=== PATIENT | female | born 1955 | race Caucasian/White ===

== ENCOUNTER 2021-12-22 18:59 | Observation (INO) | payer MEDICARE, SELFPAY ==
[2021-12-22] VITALS (17 sets, daily range): BP systolic 107–171; BP diastolic 68–114; PULSE 111–141; RESP 16–27; TEMP 37.1; O2SAT 97–100
--- NOTE | ~2021-12-22 | XR_ITS ---
EXAMINATION: XR chest 1V portable Exam Date/Time: 12/22/2021 19:55 CDT CLINICAL HISTORY: asthma Comparison: None available. RESULT: Lines, tubes, and devices: None. Lungs and pleura: Clear. Mild senescent changes. Cardiomediastinal silhouette: Normal cardiomediastinal silhouette. Other: No acute osseous or upper abdominal finding. IMPRESSION: No acute cardiopulmonary process Reviewed, dictated and finalized at location K.
--- NOTE | 2021-12-22 19:15 | ECG_ITS ---
Measurements Intervals Morgan Rate: 137 P: 78 NE: 139 QRS: 55 QRSD: 90 T: 43 QT: 293 QTc: 443 Interpretive Statements SINUS TACHYCARDIA BASELINE ARTIFACT- I, III, AVR, AVL, AVF, V1-V6 ABNORMAL ECG Electronically Signed On 12-22-2021 19:19:44 CDT by Robel Dover D.O.
--- NOTE | 2021-12-22 19:29 | ED.GENADULT ---
HPI - General Adult General Chief complaint: Asthma Stated complaint: asthma sob Time Seen by Provider: 12/22/21 19:23 Source: patient, family, EMS and RN notes reviewed Mode of arrival: EMS Limitations: clinical condition History of Present Illness HPI narrative: 66-year-old female with history of asthma and seasonal allergies presented to the emergency department for evaluation of worsening shortness of breath that started approximately 2 days ago. Patient is currently traveling from [place] to [place] and they suspect that the moving truck previously had cats or dogs in it. Patient does have underlying cat allergies. Patient does suspect she is having an asthma exacerbation. Patient has been taking multiple breathing treatments today without significant improvement. Patient did call EMS for worsening symptoms. Patient did receive Solu-Medrol and albuterol in route. Patient was placed on CPAP and was transferred to [facility] upon arrival to the ED. Patient states she does have a history of asthma attacks and states she has previous epinephrine. Related Data Home Medications Medication Instructions Recorded Confirmed Unable to Obtain Home Medications 12/22/21 12/22/21 Allergies Allergy/AdvReac Type Severity Reaction Status Date / Time codeine Allergy Unknown Verified 12/22/21 20:05 Review of Systems Review of Systems: CONSTITUTIONAL: Distressed due to breathing EYES: Denies visual changes, redness, or discharge. ENT: Denies rhinorrhea, congestion, sore throat, or otalgia. CARDIOVASCULAR: Denies chest pain, palpitations, or edema. RESPIRATORY: See HPI GASTROINTESTINAL: Denies abdominal pain, nausea, vomiting, or diarrhea. GENITOURINARY: Denies dysuria or hematuria. SKIN: Denies rash or itching. MUSCULOSKELETAL: Denies back pain, joint pain, or myalgia. NEUROLOGIC: Denies headache, numbness, or weakness. [facility] Social History Social History Smoking status: Never smoker Alcohol intake: never Substance use: never Spiritual care concerns: No Exam Narrative: APPEARANCE: Alert and oriented but uneasy due to her respiratory status HEAD: normocephalic, atraumatic. EYES: PERRLA/EOMI, conjunctivae clear. NOSE: Normal no drainage NECK: Supple. No adenopathy, no masses. RESPIRATORY: Tachypneic with expiratory wheeze in all lung samuels. CARDIOVASCULAR: Regular rate and rhythm without murmurs rubs or gallops. ABDOMINAL: Soft, nontender, nondistended, normal bowel sounds MUSCULOSKELETAL: Moves all extremities. Strength/ROM intact, No edema, No calf tenderness. NEURO: Alert. Cranial nerves II through XII intact. Grossly intact SKIN: Warm, dry. Normal Color Course Course Emergency Course: Patient received 2 x 10 mg albuterol breathing treatments in the ED. Patient did receive Solu-Medrol and magnesium sulfate 2 g IV by EMS. Patient arrived to the ED on CPAP and was transferred to [facility]. Patient did improve while she was in the emergency department but still had significant wheeze and was tachycardic. Patient was admitted to IMU. Prior to going to the floor respiratory therapy did trial the patient on room air. Case was discussed with the hospitalist and patient was admitted to the IMU. Vital Signs Vital signs: Vital Signs Temperature 98.7 F 12/22/21 19:06 Pulse Rate 141 H 12/22/21 19:06 Respiratory Rate 27 H 12/22/21 19:06 Blood Pressure 171/109 H 12/22/21 19:06 Pulse Oximetry 99 12/22/21 19:06 Temperature 98.5 F 12/23/21 00:40 Pulse Rate 114 H 12/23/21 00:44 Respiratory Rate 13 12/23/21 00:42 Blood Pressure 137/69 12/23/21 00:40 Pulse Oximetry 96 12/23/21 00:42 Medical Decision Making Vital Signs Vital Signs: Vital Signs Temperature 98.7 F 12/22/21 19:06 Pulse Rate 141 H 12/22/21 19:06 Respiratory Rate 27 H 12/22/21 19:06 Blood Pressure 171/109 H 12/22/21 19:06 Pulse Oximetry 99 12/22/21 19:06 Temperature 98.5 F 12/23/21 00:40 Pulse Rate 114 H
[2021-12-22] MEDS: ALBUTEROL SULFATE NEB 2.5 MG/0.5 ML INH 10 MG INHALATION ×2 (19:33→21:00)
[2021-12-22] MEDS: IPRATROPIUM BR 0.02% INH SOLN 0.5 MG/2.5 ML VIAL 2 MG INHALATION (19:33)
[2021-12-22 19:56] LABS: Basophils Absolute Auto 0.1 K/mm3 (0.0-0.1); Basophils Percent Auto 0.7 % (0.2-1.2); Eosinophils Absolute Auto 0.3 K/mm3 (0-0.3); Eosinophils Percent Auto 2.3 % (0-4.4); Hematocrit 49.2 % (37.0-47.0); Immature Granulocyte Absolute 0.07 K/mm3 (0.00-0.031); Immature Granulocyte Percent A 0.6 % (0-0.5); Lymphocytes Percent Auto 18.3 % (18.3-44.2); Mean Corpuscular HGB Conc 30.5 g/dl (32-36); Mean Corpuscular Hemoglobin 27.3 pg (26-34); Mean Corpuscular Volume 89.5 fl (80-100); Mean Platelet Volume 10.1 fl (7.4-10.4); Monocytes Absolute Auto 0.5 K/mm3 (0.1-0.6); Monocytes Percent Auto 3.8 % (2.6-8.5); Neutrophils Absolute Auto 8.9 K/mm3 (1.3-6.7); Neutrophils Percent Auto 74.3 % (45.5-73.1); Platelet Count Result 210 k/mm3 (150-375); Red Cell Distribution Width 14.6 % (11.5-14.5)
[2021-12-22] MEDS: SODIUM CHLORIDE 0.9% IV 1,000 ML 999 ML IV CONT (20:19)
[2021-12-22] MEDS: ONDANSETRON INJ 4 MG/2 ML VIAL IV PUSH (20:20)
--- NOTE | 2021-12-22 20:31 | PC.NURSE ---
This RN entered room to collect COVID and FLU swab. Pt refused swab, stating that she did not want anything up her nose. This RN suggested a throat swab instead. RN educated pt and family on why swab is necessary for placement on unit and for course of treatment. Pt still refused, stating I know this is just asthma . ANNITA Anaya notified.
[2021-12-22] MEDS: IPRATROPIUM BR 0.02% INH SOLN 0.5 MG/2.5 ML VIAL 1 MG INHALATION (20:59)
[2021-12-22] MEDS: HYDROmorphone HCL INJ (*CRX) 1 MG/ML SYR 0.5 MG IV PUSH (21:23)
[2021-12-22 21:34] LABS: Alanine Aminotransferase 34 U/L (6-35); Albumin Level 4.4 g/dL (3.5-5.1); Alkaline Phosphatase 92 U/L (38-126); Anion Gap 8 mmol/L (8-16); Aspartate Amino Transferase 31 U/L (14-36); Bilirubin,Total 0.3 mg/dL (0.2-1.3); Blood Urea Nitrogen 19 mg/dL (7-17); Calcium 9.3 mg/dL (8.4-10.2); Carbon Dioxide 30 mmol/L (22-30); Chloride 102 mmol/L (98-107); Estimated CRCL calculation 58 ml/min; Estimated Glomerular Filt Rate > 60; Glucose 153 mg/dL (65-110); Potassium 3.5 mmol/L (3.4-5.0); Sodium 140 mmol/L (137-145)
[2021-12-22 21:45] LABS: Troponin I < 0.012 ng/mL (0.000-0.034)
--- NOTE | 2021-12-22 22:42 | PM.IMHP ---
H&P: HPI History of Present Illness Date/Time: 12/22/21 22:42 Chief Complaint: Shortness of breath. Narrative: This is a 66-year-old female with past medical history significant for asthma, patient is on a road trip to [place] from [place] she has been having shortness of breath and wheezing for the last 3 days or so patient has been using her inhaler quite often with no relieving of symptoms. Patient denies any fevers, rigors, chills, she has a persistent dry cough. Patient denies any calves pain, no nausea, no vomiting ,no abdominal pain, no diarrhea. Patient came by ambulance on route to the hospital received magnesium, Solu-Medrol, inhaler treatment, was placed on CPAP upon arrival to emergency room she was struggling with shortness of breath and received long nebulizer treatments and was placed on BiPAP. Patient had a low oxygen saturation. Preliminary workup was significant for chest x-ray with no acute cardiopulmonary abnormality. Review of Systems Review of Systems: ROS unobtainable: Yes unobtainable due to medical condition (Patient is on BiPAP) [facility] Social History Social History Smoking status: Never smoker Alcohol intake: never Substance use: never Spiritual care concerns: No Meds Home Medications and Allergies Home Medications Medication Instructions Recorded Confirmed Type Unable to Obtain Home Medications 12/22/21 12/22/21 History Allergies Allergy/AdvReac Type Severity Reaction Status Date / Time codeine Allergy Unknown Verified 12/22/21 20:05 Vital Signs Vital Signs - 24 hr 12/22/21 19:06 12/22/21 19:15 12/22/21 19:28 Temperature 98.7 F Pulse Rate 141 H 136 H Respiratory Rate 27 H 26 H Blood Pressure 171/109 H Pulse Oximetry 99 99 98 12/22/21 19:34 12/22/21 20:15 12/22/21 20:32 Temperature Pulse Rate 134 H 140 H 135 H Respiratory Rate 22 H 20 20 Blood Pressure 168/114 H Pulse Oximetry 100 100 12/22/21 20:49 12/22/21 20:55 12/22/21 21:00 Temperature Pulse Rate 129 H 128 H 126 H Respiratory Rate 22 H 24 H 21 H Blood Pressure 161/94 H Pulse Oximetry 100 100 12/22/21 21:31 12/22/21 21:32 12/22/21 22:02 Temperature Pulse Rate 131 H 126 H Respiratory Rate 19 20 Blood Pressure 138/76 Pulse Oximetry 100 100 12/22/21 22:03 12/22/21 22:25 Temperature Pulse Rate 126 H 121 H Respiratory Rate 20 21 H Blood Pressure 126/71 Pulse Oximetry 99 97 Exam Narrative: Patient is laying in a stretcher Const: General: cooperative, comfortable, no acute distress, well developed, alert, awake and other (On BiPAP) Nutritional Appearance: average body habitus Orientation/consciousness: patient oriented x3 HENMT: Head: normal to inspection, normocephalic and atraumatic Ears: hearing grossly normal bilaterally Face and sinus: normal facial exam Mouth: Yes Normal oral and palatal mucosa present Eyes: General: appearance normal, both eyes and all related structures Alignment and Position: alignment normal Sclera: sclerae normal Pupils: Equal, round and reactive pupils present EOM: EOMs intact bilaterally Neck: Neck: normal visual inspection, full ROM, no lymphadenopathy, supple and no JVD Thyroid: thyroid normal Lymphatic: no lymphadenopathy noted Resp: Effort & Inspection: normal respiratory effort and able to speak in complete sentences Auscultation: clear to auscultation bilaterally, no crackles, no rales, no rhonchi, wheezes and diminished lung sounds Cardio: Jugular venous distension: no JVD Rate: regular rate Rhythm: regular rhythm Heart sounds: S1 normal heart sound present and S2 normal heart sound present GI: Inspection: normal to inspection GI Palp: Yes Soft to palpation, No Tenderness to palpation present (GI), No Guarding due to palpation present (GI), Yes No hepatosplenomegaly present and No Rebound tenderness present : General: Yes deferred Skin: Rashes: no rashes Wounds: no wounds Neuro: General: patient orie
--- NOTE | 2021-12-22 22:51 | PC.NURSE ---
Per ED RN Latricia, pt has refused covid swab. Both nurse and ED MD have discussed it with pt.
[2021-12-22] MEDS: IPRATROPIUM BR 0.02% INH SOLN 0.5 MG/2.5 ML VIAL INHALATION (23:48)
[2021-12-22] MEDS: ALBUTEROL SULFATE NEB 2.5 MG/0.5 ML INH 5 MG INHALATION (23:48)
[2021-12-23] VITALS (22 sets, daily range): BP systolic 126–137; BP diastolic 62–74; PULSE 90–118; RESP 12–31; TEMP 36.5–36.9; O2SAT 94–100
--- NOTE | 2021-12-23 00:44 | ADMIMU ---
This patient, Tasneem López, was admitted to IMU status, and placed in Intensive Care Unit-9. Patient/family oriented to hospital policies and general routines including ID bracelet, bed and alarms, visiting hours, pain management, procedures, bathroom and other care routines, personal items, smoking policy, room service/diet, and visiting hours. Valuables list has been completed. Information on how to activate the Rapid Response Team has been discussed. Patient/Family are encouraged to report perceived risks to care and to ask questions if they do not understand what they are told or what they should do.
[2021-12-23] MEDS: methylPREDNISolone SOD SUCC 125 MG VIAL 60 MG IV PUSH ×5 (00:55→23:38)
[2021-12-23] MEDS: ALBUTEROL SULFATE NEB 2.5 MG/0.5 ML INH 5 MG INHALATION ×5 (04:21→23:55)
[2021-12-23] MEDS: IPRATROPIUM BR 0.02% INH SOLN 0.5 MG/2.5 ML VIAL INHALATION ×5 (04:21→23:55)
[2021-12-23] MEDS: ACETAMINOPHEN 325 MG TABLET 650 MG PO ×2 (06:27→17:53)
--- NOTE | 2021-12-23 13:00 | PM.IMPN ---
Progress Note: A&P Assessment and Plan (1) Asthma with acute exacerbation: Qualifiers: Asthma persistence: unspecified Asthma severity: severe Qualified Code(s): J45.901 - Unspecified asthma with (acute) exacerbation Code(s): J45.901 - Unspecified asthma with (acute) exacerbation Status: Acute Assessment and Plan: Acute exacerbation probably from whatever was in the [employer] truck Currently on room air Neb treatments scheduled Steroids on board Mag given in the ed Home medication restarted Trend respiratory status (2) Acute respiratory failure with hypoxia: Code(s): J96.01 - Acute respiratory failure with hypoxia Status: Acute Assessment and Plan: Currently on room air Saturations better Seems to be resolved Steroids on board Subjective Date/time seen: 12/23/21 1300 Interval history: Date/Time: 12/22/21 22:42 Narrative: This is a 66-year-old female with past medical history significant for asthma, patient is on a road trip to [place] from [place] she has been having shortness of breath and wheezing for the last 3 days or so patient has been using her inhaler quite often with no relieving of symptoms. Patient denies any fevers, rigors, chills, she has a persistent dry cough. Patient denies any calves pain, no nausea, no vomiting ,no abdominal pain, no diarrhea. Patient came by ambulance on route to the hospital received magnesium, Solu-Medrol, inhaler treatment, was placed on CPAP upon arrival to emergency room she was struggling with shortness of breath and received long nebulizer treatments and was placed on BiPAP. Patient had a low oxygen saturation. Preliminary workup was significant for chest x-ray with no acute cardiopulmonary abnormality. Date/Time 12/23/21 1300 Patient seems to be doing ok today. Was told that the patient should be ready for discharge, however, when I talked to the patient, she seemed to be ok with discharge only because she wants to get to her destination. When I asked her if she feels safe to go, she started to tear up and stated that she knows that this is because of the steroids. I explained that one more day would allow her to feel better. She stated that she feels that one more day would benefit her as well. Will be able to discharge her tomorrow morning. She denies nausea, vomiting, diarrhea, constipation, weakness, or fatigue. She did state that she does have a little chest pain, however, she stated that she usually has this chest pain after an episode. Review of Systems Review of Systems: All systems reviewed & are unremarkable except as noted in HPI and below Exam Const: General: cooperative, no acute distress, well developed, alert and awake Nutritional Appearance: well nourished Orientation/consciousness: oriented to person, oriented to place, oriented to time and patient oriented x3 Limitations: no limitations HENMT: Head: normal to inspection Ears: hearing grossly normal bilaterally General nose exam: Normal external nose present Mouth: Yes Normal oral and palatal mucosa present, Yes lip normal and Yes tongue normal Teeth and gingiva: abnormal tooth and associated gingiva and poor dentition Eyes: General: appearance normal, both eyes and all related structures Neck: Neck: normal visual inspection, full ROM, trachea midline and supple Chest: Chest palpation & inspection: normal inspection of the chest Resp: Effort & Inspection: normal respiratory effort and able to speak in complete sentences Auscultation: clear to auscultation bilaterally Cardio: Jugular venous distension: no JVD Rate: regular rate Rhythm: regular rhythm Heart sounds: S1 normal heart sound present and S2 normal heart sound present Peripheral pulses: Peripheral pulses 2+ throughout GI: Inspection: normal to inspection GI Palp: Yes Soft to palpation and No Tenderness to palpation present (GI) Auscultation: normal bowel sounds Skin: Gene
--- NOTE | 2021-12-23 16:51 | PC.NURSE ---
This patient, Tasneem López, was transferred to [facility] on 12/23/21 at 1645. Personal belongings sent with patient. Report given to accepting RN. Appropriate documentation sent with patient.
[2021-12-24] VITALS (7 sets, daily range): BP systolic 131; BP diastolic 80; PULSE 80–101; RESP 12–18; TEMP 36.8; O2SAT 98–99
[2021-12-24] MEDS: IPRATROPIUM BR 0.02% INH SOLN 0.5 MG/2.5 ML VIAL INHALATION ×2 (04:10→10:23)
[2021-12-24] MEDS: ALBUTEROL SULFATE NEB 2.5 MG/0.5 ML INH 5 MG INHALATION ×2 (04:10→10:22)
[2021-12-24] MEDS: methylPREDNISolone SOD SUCC 125 MG VIAL 60 MG IV PUSH (06:20)
--- NOTE | 2021-12-24 07:15 | PM.DS ---
DS: Admitting Diagnosis Discharge Date 12/24/2115 Admitting Diagnosis Asthma exacerbation DS: Discharge Diagnosis Discharge Diagnosis (1) Asthma with acute exacerbation: Qualifiers: Asthma persistence: unspecified Asthma severity: severe Qualified Code(s): J45.901 - Unspecified asthma with (acute) exacerbation Code(s): J45.901 - Unspecified asthma with (acute) exacerbation Status: Acute Assessment and Plan: Acute exacerbation probably from whatever was in the [employer] truck Currently on room air Neb treatments scheduled Steroids on board Mag given in the ed Home medication restarted Trend respiratory status (2) Acute respiratory failure with hypoxia: Code(s): J96.01 - Acute respiratory failure with hypoxia Status: Acute Assessment and Plan: Currently on room air Saturations better Seems to be resolved Steroids on board DS: Summary Hospital Course Hospital Course: Patient is a 62-year-old female with past medical history of asthma who presented to the ED with shortness of breath and wheezes for the last 3 days. Patient is moving across the country from [place] to [place]. Patient and her rented a [employer] which she states was lined with care. Patient had been using nebulizer treatments and multiple medications to control her symptoms however was unable to get her symptoms under control. Upon arrival to the ED patient was placed on BiPAP and given 2 g of magnesium. Neb treatments were also scheduled. Patient has been ruled on room air for 24 hours and wheezing has been more controlled. Currently patient feels great and is ready for discharge at this time. Labs are stable. Medications have been prescribed. Patient is aware that she needs to get a physician upon arrival to home. Patient also stated that she feels stable enough to take the drive. She is aware that she needs to stay away from the [employer] truck and watch for allergens. Patient is ready and stable for discharge at this time. Medications have been picked up from the pharmacy. Education has been given about prompt follow-up upon arrival to home. Status at Discharge Functional status at discharge: independent ambulation Overall status at discharge: patient is progressing back to baseline Time Spent with Patient Time attestation: Total time spent providing and/or coordinating discharge services: 48 minutes Time spent: Greater than 30 minutes Specific discharge activities: Diagnostic testing, chart review, developing a treatment plan, education, care coordination documentation, physical exam, result review Exam Const: General: cooperative, comfortable, no acute distress, well developed, alert and awake Nutritional Appearance: average body habitus and well nourished Orientation/consciousness: oriented to person, oriented to place, oriented to time and patient oriented x3 Limitations: no limitations HENMT: Head: normal to inspection, normocephalic and atraumatic Ears: hearing grossly normal bilaterally General nose exam: Normal external nose present Face and sinus: normal facial exam Mouth: Yes Normal oral and palatal mucosa present, Yes lip normal and Yes tongue normal Teeth and gingiva: abnormal tooth and associated gingiva and poor dentition Eyes: General: appearance normal, both eyes and all related structures Alignment and Position: alignment normal Pupils: Equal, round and reactive pupils present EOM: EOMs intact bilaterally Neck: Neck: normal visual inspection, full ROM, no lymphadenopathy, trachea midline, supple and no JVD Thyroid: thyroid normal Lymphatic: no lymphadenopathy noted Chest: Chest palpation & inspection: normal inspection of the chest Resp: Effort & Inspection: normal respiratory effort and able to speak in complete sentences Auscultation: clear to auscultation bilaterally, no crackles, no rales, no rhonchi and wheezes (very seldom when talking ) expiratory wheeze
[2021-12-24] MEDS: ENOXAPARIN 40 MG/0.4 ML SYRINGE SUB-Q (09:45)
== END 2021-12-24 13:05 | disposition home or self-care (01) ==
LOC: ANHED 22:48 → ANH2MED 12-24 07:43 → ANHICU 12-25 12:42
PROVIDERS: Admitting Provider Internal Medicine; Emergency Provider Emergency Medicine; Visit Provider Nurse Practitioner
DX: J45.901 Unspecified asthma with (acute) exacerbation (principal); J96.01 Acute respiratory failure with hypoxia
CPT/HCPCS: 36415; 71045; 80053; 84484; 85025; 93005; 94002; 94640; 96361; 96372; 96374; 96375; 96376; 99285; A9270; G0378; J1170; J1650; J2405; J2930; J7030